=== PATIENT | male | born 1975 | race Caucasian/White ===

== ENCOUNTER 2020-09-14 11:54 | Observation (INO) ==
[2020-09-14] MEDS ORDERED: Isovue-370 500 ML BOTTLE IVP ONE (12:08)
[2020-09-14 12:57] LABS: White Blood Count 8.7 K/mcL (4.3-11.1)
[2020-09-14 12:58] LABS: Basophils # 0.1 K/mcL (0.0-0.2); Basophils % 0.6 %; Eosinophils # 0.1 K/mcL (0.0-0.6); Eosinophils % 1.5 %; Hematocrit 54.2 % (37.5-50.1); Hemoglobin 18.8 g/dL (12.9-16.9); Immature Granulocytes % 0.2 % (0-4); Lymphocytes # 2.6 K/mcL (0.6-4.6); Lymphocytes % 29.4 %; Mean Corpuscular HGB Conc 34.7 g/dL (31.6-35.5); Mean Corpuscular Hemoglobin 30.9 pg (28.0-33.3); Mean Platelet Volume 8.8 fL (9.4-12.4); Monocytes # 0.7 K/mcL (0.0-1.3); Monocytes % 8.3 %; Neutrophils # 5.2 K/mcL (1.6-8.9); Platelet Count 370 K/mcL (140-400); Red Blood Count 6.09 M/mcL (4.19-5.50); Red Cell Distribution Width 14.7 % (11.5-14.5)
[2020-09-14 13:29] LABS: BUN/Creatinine Ratio 13 (6-26); Blood Urea Nitrogen 13 mg/dL (6-20); Calcium 9.4 mg/dL (8.6-10.3); Carbon Dioxide 28 mEq/L (23-29); Chloride 100 mEq/L (98-107); Glucose 101 mg/dL (70-105); Osmolality,Calculated 280 (280-300); Potassium 4.6 mEq/L (3.5-5.1); Sodium 135 mEq/L (136-145); Troponin I 0.03 ng/mL (< 0.04); eGFR For African Americans > 60 (> 60); eGFR For Non-African Americans > 60 (> 60)
[2020-09-14] MEDS ORDERED: Aspirin 325 MG TABLET PO ONE (16:14)
[2020-09-14] MEDS ORDERED: Nicotine 21 MG PATCH.TD24 TD ONE (16:45)
[2020-09-14] MEDS ORDERED: Naloxone 0.4 MG/ML INJ IVP PRN (16:50)
[2020-09-14] MEDS ORDERED: Ondansetron 4 MG/2 ML VIAL IVP PRN (16:50)
[2020-09-14] MEDS ORDERED: Nitroglycerin 0.4 MG TAB.SUBL SL PRN (16:56)
[2020-09-14] MEDS ORDERED: 0.9 % Sodium Chloride 1,000 ML IVC SCH (17:00)
[2020-09-14] MEDS ORDERED: Gadolinium Contrast Agent (WT Based) IV PRN (17:19)
[2020-09-14] MEDS ORDERED: Ipratropium/Albuterol Neb 3 ML IH PRN (18:06)
[2020-09-14] MEDS: *HR* Heparin 5,000 UNIT/ML VIAL SQ SCH (19:39)
[2020-09-14] MEDS: carvediloL 6.25 MG TABLET PO SCH (19:39)
[2020-09-15 02:04] LABS: Estimated Average Glucose 105 mg/dl; Hemoglobin A1C 5.3 %
[2020-09-15 02:15] LABS: Alanine Aminotransferase 19 Units/L (7-52); Albumin 3.8 g/dL (3.5-5.7); Albumin/Globulin Ratio 1.4 (1.1-2.2); Alkaline Phosphatase 50 Units/L (34-104); Aspartate Amino Transferase 19 Units/L (13-39); BUN/Creatinine Ratio 13 (6-26); Bilirubin,Total 0.9 mg/dL (0.3-1.0); Blood Urea Nitrogen 13 mg/dL (6-20); Calcium 8.8 mg/dL (8.6-10.3); Carbon Dioxide 23 mEq/L (23-29); Chloride 103 mEq/L (98-107); Chol/HDL Ratio 10.3 (0-4.9); Cholesterol 154 mg/dL (< 200); Globulin 2.7 g/dL (2.4-3.5); Glucose 132 mg/dL (70-105); HDL Cholesterol 15 mg/dL (40-59); LDL Cholesterol,Calculated 85 mg/dL (< 100); Magnesium 1.9 mg/dL (1.6-2.6); Osmolality,Calculated 284 (280-300); Phosphorous 2.9 mg/dL (2.7-4.5); Potassium 3.7 mEq/L (3.5-5.1); Sodium 136 mEq/L (136-145); Total Protein 6.5 g/dL (6.4-8.9); Triglycerides 269 mg/dL (< 150); eGFR For African Americans > 60 (> 60); eGFR For Non-African Americans > 60 (> 60)
[2020-09-15 04:45] LABS: INR 1.1; Prothrombin Time 12.7 Seconds (9.4-12.1)
[2020-09-15] MEDS: *HR* Heparin 5,000 UNIT/ML VIAL SQ SCH ×2 (05:21→17:36)
[2020-09-15] MEDS ORDERED: Regadenoson 0.4 MG/5 ML SYRINGE IVP ONE (06:47)
[2020-09-15] MEDS: carvediloL 6.25 MG TABLET PO SCH ×2 (08:43→17:35)
[2020-09-15] MEDS: Aspirin Enteric Coated 81 MG Tablet PO SCH (08:43)
[2020-09-15] MEDS: Nicotine 21 MG PATCH.TD24 TD SCH (11:48)
[2020-09-15] MEDS ORDERED: Perflutren Lipid Microsphere 1.3 ML in 0.9 % Sodium Chloride 8.7 ML IVP PRN (13:51)
[2020-09-15] MEDS: Isosorbide MONOnitrate (24 HR) 30 MG TAB.ER.24H PO SCH (16:10)
[2020-09-16] MEDS: *HR* Heparin 5,000 UNIT/ML VIAL SQ SCH ×2 (04:59→17:00)
[2020-09-16] MEDS: Isosorbide MONOnitrate (24 HR) 30 MG TAB.ER.24H PO SCH (07:46)
[2020-09-16] MEDS: Aspirin Enteric Coated 81 MG Tablet PO SCH (07:46)
[2020-09-16] MEDS: carvediloL 6.25 MG TABLET PO SCH ×2 (07:46→16:56)
[2020-09-16] MEDS: Nicotine 21 MG PATCH.TD24 TD SCH (08:43)
[2020-09-16 08:50] LABS: Hemoglobin 12.9 g/dL (12.9-16.9); Mean Corpuscular HGB Conc 33.1 g/dL (31.6-35.5); Mean Corpuscular Hemoglobin 30.4 pg (28.0-33.3); Mean Corpuscular Volume 91.8 fL (83.0-100.0); Mean Platelet Volume 9.8 fL (9.4-12.4); Platelet Count 256 K/mcL (140-400); Red Blood Count 4.25 M/mcL (4.19-5.50); White Blood Count 9.6 K/mcL (4.3-11.1)
[2020-09-16] MEDS ORDERED: *HR* Heparin 10,000 UNIT/10 ML VIAL ONE ×2 (10:12→13:41)
[2020-09-16] MEDS ORDERED: ISOVUE-370 200 ML INFUS..BTL ONE (10:12)
[2020-09-16] MEDS ORDERED: 0.9 % Sodium Chloride 2,000 ML ONE ×2 (10:12→13:41)
[2020-09-16] MEDS ORDERED: Nitroglycerin 1,000 MCG/5 ML VIAL IV ONE ×2 (10:12→13:41)
[2020-09-16] MEDS ORDERED: Heparin 1,000 UNITS/500 mL 500 ML ONE (10:12)
[2020-09-16] MEDS ORDERED: *HR* Midazolam HCl 2 MG/2 ML VIAL ONE ×2 (10:17→13:40)
[2020-09-16] MEDS ORDERED: *HR* FentaNYL (PF) 100 MCG/2 ML VIAL ONE ×2 (10:17→13:40)
[2020-09-16] MEDS ORDERED: *HR* LORazepam 2 MG/ML VIAL IVP ONE (10:49)
[2020-09-16] MEDS ORDERED: Adenosine 90 MG/30 ML MLS IV ONE (13:14)
[2020-09-16] MEDS ORDERED: Nicotine 21 MG PATCH.TD24 TD ONE (15:19)
[2020-09-16] MEDS ORDERED: 0.9 % Sodium Chloride 1,000 ML IVC SCH (16:30)
[2020-09-16] MEDS: Furosemide 40 MG/4 ML VIAL IVP SCH (16:57)
[2020-09-17] MEDS: *HR* Heparin 5,000 UNIT/ML VIAL SQ SCH (04:26)
[2020-09-17] MEDS: Furosemide 40 MG/4 ML VIAL IVP SCH (07:42)
[2020-09-17] MEDS: Nicotine 21 MG PATCH.TD24 TD SCH (07:42)
[2020-09-17] MEDS: carvediloL 6.25 MG TABLET PO SCH (07:43)
[2020-09-17] MEDS: Isosorbide MONOnitrate (24 HR) 30 MG TAB.ER.24H PO SCH (07:43)
[2020-09-17] MEDS: Aspirin Enteric Coated 81 MG Tablet PO SCH (07:43)
[2020-09-17 08:51] LABS: Mean Corpuscular HGB Conc 33.5 g/dL (31.6-35.5); Mean Corpuscular Hemoglobin 30.6 pg (28.0-33.3); Mean Corpuscular Volume 91.5 fL (83.0-100.0); Mean Platelet Volume 8.8 fL (9.4-12.4); Platelet Count 332 K/mcL (140-400); Red Blood Count 6.11 M/mcL (4.19-5.50); Red Cell Distribution Width 15.2 % (11.5-14.5); White Blood Count 9.6 K/mcL (4.3-11.1)
[2020-09-17 08:56] LABS: Hematocrit 55.9 % (37.5-50.1); Hemoglobin 18.7 g/dL (12.9-16.9)
[2020-09-17 09:06] LABS: BUN/Creatinine Ratio 12 (6-26); Blood Urea Nitrogen 12 mg/dL (6-20); Carbon Dioxide 30 mEq/L (23-29); Chloride 101 mEq/L (98-107); Glucose 102 mg/dL (70-105); Osmolality,Calculated 284 (280-300); Potassium 3.8 mEq/L (3.5-5.1); Sodium 137 mEq/L (136-145); eGFR For African Americans > 60 (> 60); eGFR For Non-African Americans > 60 (> 60)
[2020-09-17 11:07] VITALS: BP 117/81
[2020-09-17] MEDS ORDERED: Furosemide 20 MG TABLET PO SCH (17:00)
== END 2020-09-17 13:15 | disposition home or self-care (01) ==
LOC: 3BNU 11:54 → EMEROOARM 11:54 → SUATTDRO 16:33 → 3BNU 18:07
PROVIDERS: ADMIT Internal Medicine; ATTEND Registered Nurse